=== PATIENT | female | born 1955 | race Caucasian/White ===

== ENCOUNTER 2019-03-15 06:03 | Day surgery (SDC) | payer OTHER ==
[~2019-03-15] VITALS: Ht 157.5 cm; Wt 88.9 kg
[2019-03-15 07:11] VITALS: Ht 157.5 cm; Wt 88.9 kg
--- NOTE | 2019-03-15 07:11 | PREAC ---
Date/Time of Note Date/Time of Note DATE: 03/15/19 TIME: 07:07 Anesthesia Eval and Record Evaluation Time Pre-Procedure Interview DATE: 03/15/19 TIME: 07:07 Age 63 Sex female NPO: 8 hrs Preoperative diagnosis Reflux, Diarreah Planned procedure EGD, Colonoscopy Past Medical History Past Medical History: Includes Cardio: HTN GI: Obesity Surgery & Anesthesia Issues No known issue Meds Anticoagulation: No Beta Alen within 24 hr: No Reason Beta Alen not given: Pt. not on B-Alen Meds reviewed: Yes Allergies Allergies Reviewed: No Labs/Studies Labs Reviewed: Reviewed by anesthesiologist test: N/A Pre-procedure Exam Airway: Adequate mouth opening Mallampati: Mallampati III Teeth: Normal Lung: Normal Heart: Normal ASA Physical Status ASA physical status: 3 Emergency: None Planned Anesthetic General/MAC: MAC Pre-operative Attestations Prior to commencing anesthesia and surgery, the patient was re-evaluated, there was verification of: *The patient's identity *The results of appropriate recent lab work and preoperative vital signs *The above evaluation not changing prior to induction *Anesthetic plan, risk benefits, alternative and complications discussed with patient/family; questions answered; patient/family understands, accepts and wishes to proceed. NILDA PATEL MD March 15, 2019 07:11
[2019-03-15] MEDS ORDERED: PROPOFOL 40 ML ONE (07:19)
[2019-03-15 07:59] VITALS: BP 135/68; PULSE 60; RESP 18
[2019-03-15] MEDS ORDERED: OMEP40CA6 PO (08:04)
[2019-03-15] MEDS ORDERED: LISI10TA2 PO (08:04)
[2019-03-15] MEDS ORDERED: VITAMIN D3 PO (08:04)
--- NOTE | 2019-03-15 08:40 | PAC ---
Date/Time of Note Date/Time of Note DATE: 03/15/19 TIME: 08:40 Post-Anesthesia Notes Post-Anesthesia Note Activity: WNL Respiratory function: WNL Cardiovascular function: WNL Mental status: Baseline Pain reasonably controlled: Yes Hydration appropriate: Yes Nausea/Vomiting absent: Yes NILDA PATEL MD March 15, 2019 08:40
== END 2019-03-15 15:22 | disposition home or self-care (01) ==
LOC: GIL 06:03
PROVIDERS: ATTEND Internal Medicine Gastroenterology
DX: Z12.11 Encounter for screening for malignant neoplasm of colon (principal); K64.8 Other hemorrhoids; K57.30 Diverticulosis of large intestine without perforation or abscess without bleeding; K21.9 Gastro-esophageal reflux disease without esophagitis
CPT/HCPCS: 43239; 45378; 88305; 88312; Z7610